=== PATIENT | female | born 1975 | race Two or more races ===

== ENCOUNTER → 2024-09-05 | Outpatient (CLI) | payer MEDICAID, SELFPAY ==
--- NOTE | 2024-09-05 15:11 | XR_ITS ---
Examination: Bilateral wrists 6 views TECHNIQUE: AP oblique lateral interest total 6 views Date and time: September 05, 2024 1733 hours INDICATIONS: Bilateral wrist pain several years. FINDINGS: Mild to moderate osteopenia No fracture or dislocation involving either wrist No erosive or other significant arthritic change involving either wrist. No avascular necrosis IMPRESSION: No ureters or other significant arthritic change involving either wrist
--- NOTE | 2024-09-05 15:11 | XR_ITS ---
Examination: Bilateral hands, 6 views. Technique: AP, Oblique, Lateral each hand total 6 views Date and time of exam: September 05, 2024 1729 hours INDICATIONS: Bilateral hand pain and weakness several years Findings: Moderate osteopenia Mild diffuse narrowing joints of the wrists and hands bilaterally No fractures. No erosive arthritis No opaque foreign bodies IMPRESSION: Mild diffuse narrowing joints of the wrists and hands bilaterally, no erosive arthritis
== END | disposition home or self-care (01) ==
PROVIDERS: PCP Physician Assistant Medical; Referring Provider Nurse Practitioner Gerontology; Visit Provider Nurse Practitioner Gerontology
DX: M25.832 Other specified joint disorders, left wrist (principal); M25.831 Other specified joint disorders, right wrist; M25.842 Other specified joint disorders, left hand; M25.841 Other specified joint disorders, right hand
CPT/HCPCS: 73110; 73130